=== PATIENT | female | born 1935 | race Caucasian/White ===

== ENCOUNTER 2017-04-18 11:29 | Inpatient (IN) ==
[2017-04-18 16:39] LABS: ALLEN TEST YES; BE -8.8 mmoll (-3.0-3.0); BLOOD TYPE ARTERIAL; DRAW SITE R BRACHIAL; O2(CT) 15.6 mL/dL (15.0-23.0); PCO2(98.6) 34 mmHg (35-45); PO2(98.6) 88 mmHg (60-100); SAMPLE BLOOD; SAO2 96.5 % (95.0-100.0); THB 11.4 g/dL (11.5-17.4)
[2017-04-18] MEDS: ZOFRAN IV PRN ×2 (16:39→22:50)
[2017-04-18] MEDS: NORCO-7.5 PO PRN ×2 (16:39→22:49)
[2017-04-18] MEDS: DUONEB (A & A) INH SCH ×3 (16:40→23:35)
[2017-04-18] MEDS: SOLU-MEDROL IV SCH ×2 (16:40→22:50)
[2017-04-18 16:42] LABS: MODALITY ROOM AIR
--- NOTE | 2017-04-18 16:49 | EKG Report ---
Test Performed on : 04/18/2017 3:43:30 PM Test Reason : sob/copd Blood Pressure : / mmHG Vent. Rate : 070 BPM Atrial Rate : 070 BPM P-R Int : 156 ms QRS Dur : 080 ms QT Int : 380 ms P-R-T Axes : 057 012 051 degrees QTc Int : 410 ms Normal sinus rhythm. 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
[2017-04-18 17:04] LABS: MANUAL DIFF NEEDED? NO
[2017-04-18 17:07] LABS: BASO% 0.2 % (0.0-0.8); EOS# 0.21 X1000 (0.0-0.7); EOS% 1.6 % (0.0-10.0); HEMATOCRIT 36.3 % (37.0-47.0); HEMOGLOBIN 12.2 g/dL (12.0-16.0); IMM GRAN# 0.08 X1000 (0.0-0.04); IMM GRAN% 0.6 % (0.0-0.5); LYMPH# 2.05 X1000 (1.2-3.4); LYMPH% 15.7 % (20.5-51.1); MCH 28.6 PG (27-31); MCHC 33.6 g/dL (33-37); MONO% 7.7 % (1.7-9.3); MPV 10.5 FL (7.4-10.4); NEUT% 74.2 % (42.2-75.2); PLT 303 X1000 (130-400); RBC 4.27 XMIL (4.2-5.4)
--- NOTE | 2017-04-18 17:36 | HISTORY AND PHYSICAL ---
HISTORY OF PRESENT ILLNESS: Ms. Starks, who is an 81-year-old white female, was brought to the office with severe hypoxia. Her O2 saturation was 79. She had severe wheezing and some tightness in the chest. She also had pain in the left leg. She has a known case of COPD, maturity onset diabetes, severe osteoarthritis. She does use breathing treatments at home. She has been feeling bad and hence, she came to the office, from where she was admitted. PAST SURGICAL HISTORY: History of bladder repair in the past. She did have some prolapse of the uterus also. No other surgeries. SOCIAL HISTORY: She smoked only 2 cigarettes in her life. She does not drink. ALLERGIES: She is allergic to oxycodone. REVIEW OF SYSTEMS: She has generalized weakness, severe tightness in the chest, cough with expectoration, and low-grade fever. : Unremarkable. Endocrine: Unremarkable. Breasts: Unremarkable. GI: Unremarkable. PHYSICAL EXAMINATION: VITAL SIGNS: Reveal temperature 98.0 degrees, pulse 77 per minute, respiratory rate 20 per minute, blood pressure 122/58. HEENT: Head normocephalic. Pupils PERRLA. Fundus examination not done. Neck is supple. JVP normal. ENT examination unremarkable. There is no evidence of lymphadenopathy, thyroid enlargement, pedal edema, calf tenderness, anemia, cyanosis or clubbing. Pedal pulses well felt. BREASTS: Exam normal. CHEST: Normal inspection. LUNGS: Reveal bilateral severe expiratory wheezing with some basal rales. HEART: PMI in the normal position. Heart sounds normal. No murmur, gallop, or rub noted. ABDOMEN: Nondistended. Hernial orifices normal. No guarding, rigidity, free fluid, masses, or organomegaly. Bowel sounds normal. RECTAL: Deferred. CRIME LAB ANALYST: Higher functions normal. Cranial nerves normal. Motor and sensory system examination unremarkable. Deep tendon reflexes normal. Plantars downgoing. Skull and spine examination reveal painful movements of the lumbosacral spine. There are no cerebellar signs or signs of meningeal irritation. LOCOMOTOR EXAM: Unremarkable. SKIN EXAM: Unremarkable except for the presence of some calf tenderness and severely painful movements of the left knee and bilateral varicose veins. IMPRESSIONS: 1. Chronic obstructive pulmonary disease. 2. Patient may have pneumonia. 3. She has acute bronchitis. PLAN: Will continue with the current management on her with IV antibiotics and IV steroids. cc: Nicholas Sorensen MD
[2017-04-18 17:51] LABS: ALBUMIN 3.8 g/dL (3.5-5.0); CALCIUM 8.9 mg/dL (8.8-10.2); POTASSIUM 5.5 mmol/L (3.5-5.1); TOTAL BILIRUBIN 0.17 mg/dL (0.20-1.00); TOTAL PROTEIN 7.5 g/dL (6.3-8.3)
--- NOTE | 2017-04-18 18:55 | Diag Imaging Result Doc PS360 ---
CHEST-2 VIEWS - 04/18/2017 INDICATION: sob/copd TECHNIQUE: COMPARISON: 12/29/2016 FINDINGS: Stable calcified granuloma at the right base. The right upper lobe nodule is difficult to see as it is concealed by ribs and bones. No focal infiltrates, pneumothorax, or pleural effusion. Heart size is normal. IMPRESSION: No definite change from prior. Electronically signed by Nic Khan 04/18/2017 6:52 PM
[2017-04-18] MEDS: ROCEPHIN 1 GM/NS 1 GM/50 ML IVPB IV SCH (20:56)
[2017-04-18] MEDS: GLUCOPHAGE PO SCH (20:56)
[2017-04-19] MEDS: SOLU-MEDROL IV SCH ×3 (03:20→17:23)
[2017-04-19] MEDS: DUONEB (A & A) INH SCH ×2 (03:21→07:43)
[2017-04-19] MEDS: PRILOSEC PO SCH (08:01)
[2017-04-19] MEDS: NORCO-7.5 PO PRN ×3 (08:01→21:08)
--- NOTE | 2017-04-19 09:31 | PROGRESS NOTE ---
DATE: 04/19/2017 Ms. Starks is still very nervous. Her lungs sound somewhat better. Her abdomen is soft, nontender. We will continue with the current management on her. She is getting IV steroids. There is no pneumonia on the chest x-ray. -2 cc: Nicholas Sorensen MD
[2017-04-19] MEDS: GLUCOPHAGE PO SCH ×2 (09:54→17:23)
[2017-04-19] MEDS: MOBIC PO SCH (09:54)
[2017-04-19] MEDS: ZOFRAN IV PRN ×3 (10:00→21:07)
--- NOTE | 2017-04-19 12:13 | Diag Imaging Result Doc PS360 ---
EXAM: MRI LOWER EXT JT W/O CON-LEFT INDICATION: pain TECHNIQUE: COMPARISON: None. FINDINGS: There is increased signal associated with the medial and lateral menisci suggesting mucoid degeneration. There is no definite extension of the signal abnormality to the joint surface to indicate a discrete tear. The anterior and posterior cruciate ligaments are grossly intact. The patellar tendon and the patellar retinacula are intact. The medial collateral ligament and lateral collateral ligament complex are intact. There is chondromalacia that appears to be most significant at the lateral compartment and patellofemoral compartment. There is a degenerative subcortical cyst involving the tibial plateau adjacent to the medial tibial spine. There is a small joint effusion with fluid tracking into the suprapatellar bursa. There is a small Longo's cyst. 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 2.Small joint effusion with a small Longo's cyst. 3.Meniscal mucoid degeneration but no well-defined tear can be identified on this study. Electronically signed by Alexis Rudolph 04/19/2017 12:11 PM
[2017-04-19] MEDS: ATIVAN PO SCH ×2 (14:17→17:23)
[2017-04-19] MEDS: ROCEPHIN 1 GM/NS 1 GM/50 ML IVPB IV SCH (17:23)
[2017-04-19] MEDS: DUONEB (A & A) INH PRN (21:25)
[2017-04-20] MEDS: SOLU-MEDROL IV SCH ×3 (00:19→15:44)
[2017-04-20] MEDS: PRILOSEC PO SCH (06:33)
[2017-04-20] MEDS: ZOFRAN IV PRN ×3 (06:33→22:11)
[2017-04-20] MEDS: NORCO-7.5 PO PRN ×3 (06:33→22:11)
[2017-04-20] MEDS: ATIVAN PO SCH ×3 (08:03→16:24)
[2017-04-20] MEDS: MOBIC PO SCH (08:03)
[2017-04-20] MEDS: GLUCOPHAGE PO SCH ×2 (08:03→16:24)
--- NOTE | 2017-04-20 11:10 | PROGRESS NOTE ---
DATE: 04/20/2017 Ms. Starks is feeling better. She has severe pain in the left knee. Venous flow study was negative for DVT. MRI done yesterday had revealed the presence of some fluid in the knee as well as Longo's cyst. She also has arthritis with some chondromalacia. Overall condition is otherwise unchanged. Nervousness is better. Breathing is better. Blood sugar is high partly because of the steroid therapy. We are going to cut down from 80 to 40 mg q.8 hours and start the physical therapy. She also has some swallowing problems. We will get some speech therapy evaluation. -7 cc: Nicholas Sorensen MD
--- NOTE | 2017-04-20 15:15 | Extremity Venous Study ---
PROCEDURE NAME: Venous U/S Left Leg - 04/18/2017 LEFT LOWER EXTREMITY VENOUS ULTRASOUND: INDICATION: Knee pain. REQUESTING PHYSICIAN: Dr. Sorensen. BILLET WORKER: Jan. FINDINGS: The deep superficial veins of the left lower extremity were visualized along their course. All veins compressible with forward flow and no evidence intraluminal thrombus. Of note, there did appear to be a Longo cyst noted in the left popliteal fossa with an associated knee effusion as well on that side. SUMMARY: No deep or superficial venous thrombosis in the left lower extremity, but there does appear to be a Longo cyst and the left knee effusion. These results are called to Dr. Sorensen. cc: MD Nicholas Anthony MD
[2017-04-20] MEDS: ROCEPHIN 1 GM/NS 1 GM/50 ML IVPB IV SCH (15:43)
[2017-04-20] MEDS: DUONEB (A & A) INH PRN ×2 (16:11→21:20)
[2017-04-21] MEDS: SOLU-MEDROL IV SCH ×3 (00:28→22:32)
[2017-04-21] MEDS: PRILOSEC PO SCH (06:27)
[2017-04-21] MEDS: ZOFRAN IV PRN ×2 (06:32→22:32)
[2017-04-21] MEDS: NORCO-7.5 PO PRN ×3 (06:32→22:32)
[2017-04-21] MEDS: ATIVAN PO SCH ×3 (08:44→22:32)
[2017-04-21] MEDS: MOBIC PO SCH (08:44)
[2017-04-21] MEDS: GLUCOPHAGE PO SCH ×2 (08:44→16:28)
[2017-04-21] MEDS: DUONEB (A & A) INH PRN ×3 (09:18→19:43)
--- NOTE | 2017-04-21 11:43 | PROGRESS NOTE ---
DATE: 04/21/2017 SUBJECTIVE: The patient says she is feeling better with her breathing. She still hurts in her left arm on occasion. She has a Longo cyst in her left knee with some chondromalacia. I woke her up and she says she felt lousy but yet she felt better than what she had been she said. OBJECTIVE: Blood pressure is 106/56, respirations 20, pulse 63, temperature 97.8 degrees Fahrenheit. O2 saturations 97% on 2 L per nasal cannula. HEENT: Normocephalic. EOMs intact. PERRLA. Throat clear. Lungs have scattered rales but no wheezes. Heart has regular rate and rhythm without murmurs, gallops, or friction rubs. Abdomen is soft. Active bowel sounds. No organomegaly or tenderness. Neurologic intact grossly. Does not seem to be real tender over her left arm at this time but may have a little bit of a biceps tendinitis as she is tender in the bicipital groove. She is already on steroids which would be the treatment for that, and the steroids should help the Longo cyst on the left knee. Since she is doing better, I will decrease her Solu-Medrol. cc: MD Nicholas Stewart Jr, MD
[2017-04-21] MEDS: ROCEPHIN 1 GM/NS 1 GM/50 ML IVPB IV SCH (15:11)
[2017-04-22] MEDS: NORCO-7.5 PO PRN ×3 (04:53→16:59)
[2017-04-22] MEDS: ZOFRAN IV PRN ×3 (04:53→16:59)
[2017-04-22] MEDS: PRILOSEC PO SCH (06:24)
[2017-04-22] MEDS: GLUCOPHAGE PO SCH ×2 (08:21→16:55)
[2017-04-22] MEDS: MOBIC PO SCH (08:21)
[2017-04-22] MEDS: ATIVAN PO SCH ×3 (08:21→21:26)
[2017-04-22] MEDS: SOLU-MEDROL IV SCH ×2 (08:21→21:26)
[2017-04-22] MEDS: DUONEB (A & A) INH PRN ×3 (09:36→21:05)
--- NOTE | 2017-04-22 12:01 | PROGRESS NOTE ---
DATE: 04/22/2017 SUBJECTIVE: The patient complains that her knee still hurts. She has a Longo cyst there. Her shoulder is better and her breathing is better. I did decrease her Solu-Medrol slightly yesterday. OBJECTIVE: Vital Signs: Temperature of 97.5 degrees Fahrenheit. Pulse 71, respirations 18 and unlabored, blood pressure 114/51. Oxygen saturation is 98% on 2 L of oxygen. HEENT: She is normocephalic. Intact PERRLA. Throat clear. Lungs: Sound fairly clear to auscultation at this time. Heart: Regular rate rhythm without murmurs, gallops, or friction rubs. Abdomen: Soft. Active bowel sounds. No organomegaly or tenderness. Neurological: Intact grossly. Patient tells me she has emphysema but she never smoked but 2 cigarettes but was around her father and her brothers who smoked and that she got this through secondhand smoking. Her left shoulder seems to be better. ASSESSMENT: 1. Chronic obstructive pulmonary disease exacerbation--improving. 2. Longo cyst left popliteal fossa. 3. Left shoulder/biceps tendon pain. PLAN: Continue care. Seems to be improving. cc: MD Nicholas Stewart Jr, MD
[2017-04-22] MEDS: ROCEPHIN 1 GM/NS 1 GM/50 ML IVPB IV SCH (15:04)
[2017-04-23] MEDS: NORCO-7.5 PO PRN ×4 (00:53→23:16)
[2017-04-23] MEDS: ZOFRAN IV PRN ×4 (00:53→23:16)
[2017-04-23] MEDS: PRILOSEC PO SCH (06:31)
[2017-04-23] MEDS: GLUCOPHAGE PO SCH ×2 (08:57→17:36)
[2017-04-23] MEDS: MOBIC PO SCH (08:57)
[2017-04-23] MEDS: ATIVAN PO SCH ×4 (08:57→22:57)
[2017-04-23] MEDS: SOLU-MEDROL IV SCH ×2 (08:58→21:51)
--- NOTE | 2017-04-23 09:07 | PROGRESS NOTE ---
DATE: 04/23/2017 Ms. Starks's blood sugar was 269. She has been on reducing doses of Solu-Medrol 40 mg IV q.12 hours. Her knee is still giving her a lot of problems. She is still short of breath. She was supposed to have a speech therapy consult. It appears like she has not been seen. Her MRI shows fluid and Longo's cyst. She is still having a lot of left knee pain. We will ask Dr. Cobian to see her for the left knee pain. IMPRESSION: 1. Severe arthritis with fluid in the left knee with a Longo's cyst. 2. She also has mature onset diabetes. 3. Chronic obstructive pulmonary disease with acute bronchitis. 4. General condition is otherwise unchanged. -6 cc: Nicholas Sorensen MD
--- NOTE | 2017-04-23 09:27 | Diag Imaging Result Doc PS360 ---
EXAM: SHOULDER-LEFT HISTORY: pain,H/o Fall TECHNIQUE: Left shoulder two views COMMENT: There is no evidence of acute fracture or dislocation. The external rotation view is suboptimal. There are degenerative changes in the acromioclavicular joint which appear to have progressed since 02/12/2015. IMPRESSION: Suboptimal study. Degenerative disease in the acromioclavicular joint. Electronically signed by Luis Mckeon 04/23/2017 9:24 AM
[2017-04-23] MEDS: DUONEB (A & A) INH PRN ×3 (09:55→19:50)
[2017-04-23] MEDS: ROCEPHIN 1 GM/NS 1 GM/50 ML IVPB IV SCH (17:36)
[2017-04-24] MEDS: ZOFRAN IV PRN ×3 (06:18→20:15)
[2017-04-24] MEDS: NORCO-7.5 PO PRN ×3 (06:18→20:16)
[2017-04-24] MEDS: PRILOSEC PO SCH (06:19)
[2017-04-24] MEDS ORDERED: MEDROL DOSEPAK PO SCH (07:30)
[2017-04-24] MEDS: GLUCOPHAGE PO SCH ×2 (09:29→16:19)
[2017-04-24] MEDS: MOBIC PO SCH (09:29)
[2017-04-24] MEDS: KLONOPIN PO SCH ×2 (09:45→20:16)
[2017-04-24] MEDS: MEDROL PO SCH ×4 (09:45→20:16)
--- NOTE | 2017-04-24 11:31 | PROGRESS NOTE ---
DATE: 04/24/2017 SUBJECTIVE: Ms. Starks is slightly better. She was seen by Dr. Murguia, who suggested some anti- inflammatory medication and later on intra-articular injections. Ms. Starks was getting confused on Ativan, and the family suggested we change it to Klonopin which we had to do with the fact that there was arthritis in the knee with Longo cyst on the left side and synovitis, along with arthritis with joint effusion on the left knee. She also has maturity onset diabetes. We will try to ion exchange operator. -0 cc: Nicholas Sorensen MD
--- NOTE | 2017-04-24 13:30 | CONSULTATION ---
DATE OF CONSULTATION: 04/24/2017 CHIEF COMPLAINT: Left knee pain. HISTORY OF PRESENT ILLNESS: 81-year-old female was admitted the hospital for multiple medical issues as well as extremity pain. She has a history of shoulder pain as well as left knee pain. She recently underwent an MRI of the left knee which shows some degenerative changes and a Longo's cyst. She reports intermittent swelling and effusions about the left knee which have caused her difficulty. I was consulted for evaluation of this. PAST MEDICAL HISTORY: Significant for COPD, adult onset diabetes and arthritis. SURGICAL HISTORY: Of bladder repair in the past. SOCIAL HISTORY: Does smoke cigarettes. Does not drink. ALLERGIC: Oxycodone. MEDICATIONS: Are up-to-date and accurate per admission records. PHYSICAL EXAMINATION: Examination of the left knee reveals no effusion. There is mild patellofemoral crepitus. There is no instability. There is no redness or warmth. Examination of the shoulder reveals some loss of active and passive motion demonstrating adhesive capsulitis and bursitis of the shoulder. X-RAYS: Reviewed of the knee including MRI which shows no fracture or dislocation. X-rays of the shoulder are reported as DJD over the AC joint. ASSESSMENT: 1. Chondromalacia with DJD of the knee and Longo's cyst. 2. Bursitis and DJD AC joint of the shoulder with mild adhesive capsulitis. PLAN: Patient can be mobilized. Physical therapy for both shoulder and knee. Will place her on a Medrol Dosepak for acute inflammation throughout her body. I will follow up with her in a week for further evaluation. If she fails to improve in a specific area, we will consider cortisone shot at that area in the office setting. Thanks again for asking us to evaluate her. cc: MD Nicholas Onofre MD
[2017-04-24] MEDS: ROCEPHIN 1 GM/NS 1 GM/50 ML IVPB IV SCH (16:20)
[2017-04-25] MEDS: PRILOSEC PO SCH (06:25)
[2017-04-25] MEDS: ZOFRAN IV PRN (08:46)
[2017-04-25 08:50] VITALS: BP 150/70
[2017-04-25] MEDS: MEDROL PO SCH (08:50)
[2017-04-25] MEDS: GLUCOPHAGE PO SCH (08:50)
[2017-04-25] MEDS: NORCO-7.5 PO PRN (08:50)
[2017-04-25] MEDS: KLONOPIN PO SCH (08:51)
[2017-04-25] MEDS: MOBIC PO SCH (08:51)
--- NOTE | 2017-04-25 09:51 | PROGRESS NOTE ---
DATE: 04/25/2017 Ms. Starks is doing better. Her lungs are clear. Heart sounds are normal. Her knee still has a lot of pain. We will discharge her today with prednisone as well as antibiotics and Zofran ODT today. IMPRESSIONS: 1. Acute bronchitis. 2. Diabetes. 3. Severe pain in the left knee as well as the left shoulder with arthritis and bursitis. -3 cc: Nicholas Sorensen MD
--- NOTE | 2017-04-26 05:52 | DISCHARGE SUMMARY ---
ADMISSION DATE: 04/18/2017 DISCHARGE DATE: 04/25/2017 HISTORY: Ms. Starks, who is an 81-year-old white female, was admitted with shortness of breath, severe pain in the left knee. She had acute exacerbation of COPD. She had persistent cough and fever with the suspicion for pneumonia. Chest x-ray revealed no definite acute change, like pneumonia. Extremity venous studies were negative. No deep or superficial venous thrombosis was noted. Appeared to be a Longo's cyst and left knee effusion. Her extremity MRI revealed again presence of the Longo cyst with small joint effusion, degenerative chondromalacia changes, meniscal mucoid degeneration was also noted. LAB DATA: Also revealed leukocytosis. White count was 13.07. ABGs revealed pH 7.3, pCO2 34, PO2 was 88 and she had mild renal failure with mild hyperkalemia; potassium was 5.5. Other values were unremarkable. COURSE IN THE HOSPITAL: She was treated with IV steroids as well as IV antibiotics and respiratory therapy. Left knee pain was severe. Orthopedics consult was made. Dr. Murguia saw her and wanted to treat her conservatively with prednisone tablets for the time being and later on, intra-articular steroid knee injections. I will discharge her. FINAL DIAGNOSES: 1. Acute exacerbation of chronic obstructive pulmonary disease. 2. Uncontrolled diabetes. 3. Severe anxiety state. 4. Arthritis in the left knee as well as the left shoulder with some bursitis. FOLLOWUP: We will follow her in about 7 days. cc: Nicholas Sorensen MD
--- NOTE | 2017-05-01 10:24 | DISCHARGE SUMMARY ---
ADMISSION DATE: 04/18/2017 DISCHARGE DATE: 04/25/2017 DISCHARGE SUMMARY ADDENDUM: The patient had a known case of COPD and was admitted with acute bronchitis. However, her ABGs revealed a pH of 7.3, pCO2 was only 34. Her BUN and creatinine were elevated. Potassium was 5.5. I feel like she had mild metabolic acidosis at that time. She was breathing fast, she was also very nervous, but she had mild metabolic acidosis from renal failure. cc: Nicholas Sorensen MD
== END 2017-04-25 11:47 | disposition home health service (06) ==
LOC: DIRADM 11:29 → 3N 12:07
PROVIDERS: ADMIT Internal Medicine; ATTEND Internal Medicine

== ENCOUNTER 2017-05-16 09:58 | Inpatient (IN) ==
[2017-05-16] MEDS ORDERED: NS 1,000 ML IV ONE ×2 (10:14→13:43)
[2017-05-16] MEDS ORDERED: IMODIUM PO ONE (10:15)
[2017-05-16] MEDS ORDERED: PHENERGAN IV ONE (10:15)
[2017-05-16] MEDS ORDERED: SODIUM CHLORIDE 0.9% INJ ONE (10:15)
[2017-05-16 10:51] LABS: MANUAL DIFF NEEDED? NO
[2017-05-16 10:57] LABS: BASO% 0.2 % (0.0-0.8); EOS# 0.04 X1000 (0.0-0.7); EOS% 0.4 % (0.0-10.0); HEMATOCRIT 37.4 % (37.0-47.0); HEMOGLOBIN 12.3 g/dL (12.0-16.0); IMM GRAN# 0.15 X1000 (0.0-0.04); IMM GRAN% 1.7 % (0.0-0.5); LYMPH# 1.25 X1000 (1.2-3.4); MCH 27.8 PG (27-31); MCHC 32.9 g/dL (33-37); MCV 84.4 FL (81-99); MONO# 0.72 X1000 (0.11-0.59); MONO% 8.1 % (1.7-9.3); NEUT% 75.6 % (42.2-75.2); PLT 441 X1000 (130-400); RBC 4.43 XMIL (4.2-5.4)
[2017-05-16 11:30] LABS: INR 1.02; PROTIME 10.7 Seconds (9.2-11.7)
[2017-05-16 11:32] LABS: URINE CULTURE NEEDED? NO; URINE SOURCE CATH
[2017-05-16 11:36] LABS: BILIRUBIN URINE NEGATIVE (NEGATIVE); BLOOD URINE NEGATIVE (NEGATIVE); COLOR YELLOW; GLUCOSE URINE NEGATIVE (NEGATIVE); LEUKOCYTES URINE NEGATIVE (NEGATIVE); NITRITE URINE NEGATIVE (NEGATIVE); PH URINE 5.5; PROTEIN URINE 50 mg/dL (NEGATIVE); TURBIDITY URINE CLEAR (CLEAR); UROBILINOGEN URINE NORMAL (NORMAL)
[2017-05-16 11:37] LABS: ALBUMIN 3.6 g/dL (3.5-5.0); POTASSIUM 5.3 mmol/L (3.5-5.1); TOTAL BILIRUBIN 0.16 mg/dL (0.20-1.00); TOTAL PROTEIN 7.6 g/dL (6.3-8.3)
[2017-05-16 11:38] LABS: URINE MICRO REVIEW NEEDED? YES
[2017-05-16] MEDS ORDERED: NS 2,000 ML IV ONE (11:52)
--- NOTE | 2017-05-16 12:02 | PROVIDER DOCUMENTATION ---
This chart was entered by India Sullivan Scribe, acting as scribe for Jan Almeida MD. HPI-General Adult - General Stated Complaint: N/V/D Time Seen by Provider: 05/16/17 10:00 Source: patient Allergies/Adverse Reactions: Patient Allergies Allergy/AdvReac Type Severity Reaction Status Date / Time oxycodone AdvReac Severe Unknown Verified 05/16/17 11:04 oxycodone HCl * AdvReac SWELLING Verified 05/16/17 11:04 [From Percocet] Home Medications: Home Medication List Medication Instructions Recorded Confirmed Last Taken Type Hydrocodone/APAP 10 mg/325 mg 1 each PO TID PRN PRN #0 tablet 12/29/16 05/16/17 05/15/17 23:00 Rx [[facility]-10] Albuterol 2.5MG/Ipratrop 0.5MG 3 ml INH Q6H PRN PRN #0 neb 04/25/17 05/16/17 Unknown Rx [Duoneb (A & A)] Meloxicam [Mobic] 15 mg PO DAILY tablet 04/25/17 05/16/17 05/15/17 08:30 Rx Metformin [Glucophage] 500 mg PO BID CC tablet 04/25/17 05/16/17 05/15/17 08: 30 Rx Omeprazole [Prilosec] 20 mg PO ACB capsule 04/25/17 05/16/17 05/15/17 08:30 Rx Ondansetron Odt [Zofran 4 mg Odt] 4 mg PO TID AC #30 tablet 04/25/17 05/16/17 23:00 Rx Clonazepam [Klonopin] 0.5 mg PO HS 05/16/17 05/16/17 05/15/17 20:30 History - History of Present Illness -Gen Adult Nature of Presenting Problems: Pt is 82 y/o F presents to the ED via EMS with V and D. Pt states symptoms started last night at 1730. Pt states 5 episodes of V and 12 episodes of D. Pt denies abdominal pain. Pt denies F Location of Pain/Injury: reports: none Pain Radiation: reports: no radiation Quality of Pain: reports: none Severity: reports: mild Onset/Duration: reports: last night (1730) Timing: reports: still present Context/Activities at Onset: reports: light activity Modifying Factors: improves with: nothing Associated Symptoms: reports: diarrhea, vomiting. denies: anxiety, arm pain, back/neck pain, chest pain, constipation, cough, diaphoresis, dizziness, EENT symptoms, fatigue, fever/chills, genitourinary problems, headaches, heartburn, joint pain, loss of appetite, malaise, muscle aches, sinus congestion/drainage, nausea, rash, seizure, shortness of breath, sensory/motor loss, pain with inspiration, swelling/mass in abdomen, syncope, weakness, trouble walking Similar Symptoms Previously?: Yes Recently seen or treated by another doctor?: No Review of Systems - Adult - REVIEW OF SYSTEMS - ADULT Constitutional: denies: chills, fever Eyes: denies: blurred vision, double vision, redness Ears, Nose, Mouth & Throat: denies: ear pain, sinus problem, nose pain, throat pain Cardiovascular: denies: chest pain, heart murmur, irregular heart rate Respiratory: denies: cough, shortness of breath, wheezing Gastrointestinal: reports: diarrhea (12), vomiting (5). denies: abdominal pain , nausea Genitourinary: denies: dysuria, flank pain, hematuria, urinary retention Musculoskeletal: denies: back pain, joint pain, muscle aches, muscle weakness, neck pain Integumentary: denies: hives, itching, rash Neurological: denies: dizziness/vertigo, headache/migraines, numbness, seizure, syncope Psychiatric: reports: no symptoms reported Endocrine: reports: no symptoms reported Hematologic/Lymphatic: reports: no symptoms reported Allergic/Immunologic: reports: no symptoms reported All Other Systems: Reviewed and Negative Past History - Adult - PAST MEDICAL HISTORY-ADULT Review of Records: reports: Nursing Assessment Review, Medications Reviewed, Social history reviewed & non-contributory. Major Childhood Illnesses: reports: denies history Cardiovascular: reports: HTN, other (slightly enlarged heart) Respiratory: reports: COPD Gastrointestinal: reports: GERD (Hiatal hernia). denies: ulcer Obstetrical/Gynecological: reports: denies history Genitourinary: reports: denies history Musculoskeletal: reports: other (osteomylitis) Neurological: reports: denies history Endocrine/Immune: reports: Diabetes Other Conditions: reports: other cancer (skin cancer) - PRIOR SURGERIES/PROCEDURES Surgical/Procedure History: reports: tonsillectomy, other (bladder sling) - IMMUNIZATION STATUS Childhood Immunizations: See Nurse Assessment Flu Vaccine: See Nurse Assessment - FAMILY HISTORY Family History: reviewed, not pertinent - SOCIAL HISTORY Smoking: denies Substance Use: denies Living Situation: family Physical Exam-General - PHYSICAL EXAM-ADULT Initial Vital Signs Reviewed: Yes - CONSTITUTIONAL General Appearance: appears well, alert, no apparent distress. negative: lethargic, slow to respond - EYES Eyes: PERRL/EOMI, pink conjunctivae. negative: sclera injected, scleral icterus - HEAD, EARS, NOSE, MOUTH & THROAT HENMT: normocephalic/atraumatic, moist mucous membranes, normal ENT inspection. negative: hearing deficit, pharyngeal erythema, tonsillar exudate - NECK Neck: non-tender, normal inspection. negative: carotid bruit, trachial deviation - RESPIRATORY Respiratory: chest non-tender, lungs clear, normal breath sounds. negative: crackles, rales, stridor, wheezing, increased rate - CARDIOVASCULAR Cardiovascular: normal peripheral pulses, regular rate, rhythm. negative: bradycardia, tachycardia, diastolic murmur - GASTROINTESTINAL (ABDOMEN) Abdominal Exam: normal bowel sounds, non tender, soft. negative: distended, guarding, rebound - LYMPHATIC Lymphatic: no adenopathy. negative: enlargement, streaking - MUSCULOSKELETAL Back Exam: normal inspection. negative: muscle spasm, swelling, vertebral tenderness Extremity: normal range of motion, normal inspection. negative: deformity, erythema, swelling - SKIN Integumentary: normal color, normal turgor, warm/dry. negative: abrasion(s), blanching, decubitus, ecchymosis, laceration(s), swelling, tenderness - NEUROLOGIC Neurologic: grossly normal. negative: facial droop, sensory deficit - PSYCHIATRIC Psych/Mental Status: normal mood/affect, oriented x 3. negative: disheveled, paranoid Progress - PLAN OF CARE/RESULTS Progress/Plan/Lab Results: Orders Category Date Time Status PROTIME WITH INR [COAG] Stat Lab 05/16/17 10:01 Uncollected Result Diagrams: 05/16/17 10:43 05/16/17 10:43 - REASSESSMENT Reassessment #1 Time Reassessed: 12:01 Status: improving (family feels that her daughter may be giving her poison so we are doing a heavy metal screen) - CONSULTS/PCP/HOSPITALIST Notification #1 *Consult/PCP/Hospitalist*: Dr. Sorensen Time Discussed: 13:41 Reason/Comments: Dr. Almeida consulted with Dr. Sorensen about Pt. Consult Disposition: Admit (Dr Sorensen informed of the previous hx of arsenic poisoning by her other daughter. The police are doing testing of the gatoraide that may have been contaminated) Departure - Departure Date of Disposition Decision: 05/16/17 Time of Disposition Decision: 13:42 DIAGNOSIS: Nausea & vomiting, Diarrhea Disposition: HOME 01 Certified Medical Emergency: Emergent Condition: Stable Additional Freetext Instructions: ED Follow Up Instructions: You have been treated by a care provider in the Emergency Department. These instructions are being provided to you so you can have an understanding of how to care for yourself upon discharge. Upon discharge from the Emergency Department, you are responsible for making arrangements for follow-up care by a physician of your choice. Take all prescribed medications as directed. Return to the Emergency Department immediately for any new or worsening symptoms. You may call the Physician Referral phone number at [phone] to obtain a list of Physicians who are taking new patients. Referrals and Follow-Ups: Nicholas Sorensen MD [Primary Care Provider] - - Critical Care Note This patient required my direct & personal management of CC.: No This chart was documented by the indicated scribe, (India Sullivan Scribe) and accurately reflects the services I performed and decisions made by me, Jan Almeida MD, as attested by the provider's signature.
[2017-05-16 12:05] LABS: UR EPITHELIAL CELLS >10 /HPF (<10); URINE BACTERIA NEGATIVE /HPF; URINE RBC <10 /HPF (<10); URINE WBC <10 /HPF (<10)
[2017-05-16 12:06] LABS: URINE CASTS NONE SEEN
[2017-05-16 14:27] LABS: CALCIUM 7.4 mg/dL (8.8-10.2)
[2017-05-16] MEDS: POTASSIUM CHLORIDE 10 MEQ in 1/2 NS 1,000 ML IV SCH (17:32)
--- NOTE | 2017-05-16 17:41 | HISTORY AND PHYSICAL ---
HISTORY OF PRESENT ILLNESS: Ms. Starks is an 82-year-old white female, known case of COPD, hypertension, anxiety state, maturity onset diabetes who came in because of sudden onset of vomiting and diarrhea. She started vomiting last night around 6 p.m. yesterday after she drank a bottle of Gatorade. She has had diarrhea. The diarrhea and vomiting were associated with abdominal pain especially in the right upper quadrant and this was severe. She came to the emergency room where several bottles of IV fluids were given and then she got stabilized. Her BUN and creatinine were elevated. Recently, she was hospitalized for an acute bronchitis. She has COPD. The only surgery she has had done was tubal ligation. Recently she has severe arthritis in the left knee and she was seen by Dr. Murguia at that time. REVIEW OF SYSTEMS: Other than abdominal pain, diarrhea, vomiting was unremarkable. MEDICATIONS: Inhaler. [place]. Metformin. PHYSICAL EXAMINATION: GENERAL: The patient is alert. VITAL SIGNS: Reveal temperature normal, pulse 90 per minute, respiratory rate 17 per minute, blood pressure 108/54. HEENT: Head normocephalic. Pupils PERRLA. Fundus examination normal. Neck supple. JVP normal. ENT examination unremarkable. There is no evidence of lymphadenopathy, thyroid enlargement, pedal edema, calf tenderness, anemia, cyanosis or clubbing. Pedal pulses are well felt. BREASTS: Normal. Chest, normal inspection. LUNGS: Clear on auscultation. PMI in the normal position. HEART: Sounds normal. No murmur, gallop or rub noted. ABDOMEN: Nondistended. There is some tenderness in the right upper quadrant. No guarding, rigidity, free fluid, masses or organomegaly. Bowel sounds present. RECTAL: Deferred. PROCESS ENGINEERING TECHNICIAN/HIGHER FUNCTIONS: Patient is anxious. Cranial nerves normal. Motor and sensory system examination reveals some essential tremors with . Deep tendon reflexes normal, plantars downgoing. Skull and spine examination normal for age. No cerebellar signs or signs of meningeal irritation. LOCOMOTOR: Unremarkable. SKIN: Unremarkable except for the presence of significant dehydration. IMPRESSION: Dehydration. Severe diarrhea, vomiting. BUN and creatinine are elevated. We will continue the IV fluids. Repeat the lab values in the morning. We also did a stool culture. cc: Nicholas Sorensen MD
[2017-05-16] MEDS: ZOFRAN IV PRN (18:03)
[2017-05-16] MEDS: DILAUDID IV PRN ×2 (18:03→22:46)
[2017-05-16] MEDS: HUMULIN R SUBQ SCH (21:00)
[2017-05-17] MEDS: POTASSIUM CHLORIDE 10 MEQ in 1/2 NS 1,000 ML IV SCH ×3 (02:07→21:22)
[2017-05-17] MEDS: DILAUDID IV PRN ×5 (02:25→21:59)
[2017-05-17] MEDS: HUMULIN R SUBQ SCH ×3 (06:33→17:33)
[2017-05-17 06:52] LABS: BASO% 0.5 % (0.0-0.8); EOS# 0.09 X1000 (0.0-0.7); EOS% 1.4 % (0.0-10.0); HEMATOCRIT 30.9 % (37.0-47.0); HEMOGLOBIN 9.9 g/dL (12.0-16.0); IMM GRAN# 0.25 X1000 (0.0-0.04); IMM GRAN% 3.8 % (0.0-0.5); LYMPH# 1.23 X1000 (1.2-3.4); LYMPH% 18.8 % (20.5-51.1); MANUAL DIFF NEEDED? NO; MCH 27.5 PG (27-31); MCV 85.8 FL (81-99); MONO# 0.61 X1000 (0.11-0.59); MONO% 9.3 % (1.7-9.3); MPV 9.9 FL (7.4-10.4); NEUT% 66.2 % (42.2-75.2); PLT 371 X1000 (130-400)
[2017-05-17 07:02] LABS: CALCIUM 7.8 mg/dL (8.8-10.2)
--- NOTE | 2017-05-17 10:06 | Diag Imaging Result Doc PS360 ---
EXAM: WRIST COMPLETE RIGHT HISTORY: severe pain TECHNIQUE: Three views COMPARISON: None. FINDINGS: No fracture. No dislocation. There is narrowing at the joint between the scaphoid, trapezium, and trapezoid. IMPRESSION: Arthritic changes in the wrist. Electronically signed by Miles Hickman 05/17/2017 10:04 AM
[2017-05-17 12:41] LABS: BILIRUBIN URINE NEGATIVE (NEGATIVE); BLOOD URINE NEGATIVE (NEGATIVE); CLARITY CLEAR (CLEAR); COLOR YELLOW; GLUCOSE URINE NEGATIVE (NEGATIVE); LEUKOCYTES URINE NEGATIVE (NEGATIVE); NITRITE URINE NEGATIVE (NEGATIVE); PH URINE 5.5; PROTEIN URINE NEGATIVE (NEGATIVE); SP GRAVITY URINE 1.015; UROBILINOGEN URINE 0.2 EU/dL (0.2-1.0)
[2017-05-17 12:56] LABS: URINE SOURCE VOIDED
[2017-05-17] MEDS: ZOFRAN IV PRN (21:59)
[2017-05-18] MEDS: HUMULIN R SUBQ SCH ×5 (00:56→22:09)
[2017-05-18] MEDS: DILAUDID IV PRN ×5 (01:36→21:14)
[2017-05-18] MEDS: POTASSIUM CHLORIDE 10 MEQ in 1/2 NS 1,000 ML IV SCH ×4 (03:17→21:14)
--- NOTE | 2017-05-18 03:52 | PROGRESS NOTE ---
DATE: 05/17/2017 SUBJECTIVE: The patient is somewhat better. Diarrhea is better. BUN and creatinine are slightly better. However, she is having a lot of pain in her right wrist as well as other joints. I will check her out for gout, as well as rheumatoid arthritis, and x-ray the right wrist. Overall, condition is slowly improving. -4 cc: Nicholas Sorensen MD
[2017-05-18] MEDS: ZOFRAN IV PRN ×2 (04:31→21:14)
[2017-05-18 06:59] LABS: CALCIUM 8.8 mg/dL (8.8-10.2); POTASSIUM 4.9 mmol/L (3.5-5.1)
--- NOTE | 2017-05-18 13:20 | PROGRESS NOTE ---
DATE: 05/18/2017 Ms. Starks is doing fairly well except that she is having a lot of abdominal pain. She is tolerating the food well. We have stepped her up to soft diet and start her on some IV steroids. She has lot of pain in the multiple joints including the left knee as well as right today and both hip joints. We will add steroids. We will continue the IV fluids. The BUN and creatinine are getting better. She has dehydration, gastroenteritis, severe osteoarthritis. -7 cc: Nicholas Sorensen MD
[2017-05-18] MEDS: SOLU-MEDROL IV SCH (14:41)
[2017-05-18] MEDS: ZOFRAN ODT PO SCH (17:21)
[2017-05-18] MEDS: GLUCOPHAGE PO SCH (17:23)
[2017-05-18] MEDS: KLONOPIN PO SCH (22:13)
[2017-05-19] MEDS: DILAUDID IV PRN ×5 (00:07→21:16)
[2017-05-19] MEDS: SOLU-MEDROL IV SCH ×2 (00:07→11:46)
[2017-05-19] MEDS: POTASSIUM CHLORIDE 10 MEQ in 1/2 NS 1,000 ML IV SCH ×3 (05:37→22:14)
[2017-05-19] MEDS: PRILOSEC PO SCH ×2 (05:38→08:00)
[2017-05-19] MEDS: ZOFRAN ODT PO SCH ×4 (05:38→17:29)
[2017-05-19] MEDS: HUMULIN R SUBQ SCH ×4 (06:05→22:16)
[2017-05-19] MEDS: MOBIC PO SCH (08:41)
[2017-05-19] MEDS: GLUCOPHAGE PO SCH ×2 (08:41→17:29)
[2017-05-19] MEDS: DUONEB (A & A) INH PRN (11:32)
--- NOTE | 2017-05-19 13:21 | PROGRESS NOTE ---
DATE: 05/19/2017 SUBJECTIVE: Patient still complains of arthritis pain. She has been a little bit more agitated which could be from her steroids but apparently according to the family she has been somewhat agitated and somewhat confused ever since she got the diarrhea and acute gastroenteritis. She has had no more diarrhea in the last few hours. She is feeling better. Her creatinine has dropped from 3 down to 1.3, that was drawn yesterday. She has not had a CBC for the last 2 days. Has not had a chemistry profile for 24 hours. I will go ahead and get those to evaluate. PHYSICAL EXAM: Vital Signs: Blood pressure 151/70, respirations 20, pulse 75, temperature 97.9 degrees Fahrenheit. She is starting to put out urine now. She put out 1500 mL. She is starting to eat a little bit of her diet. HEENT: She is normocephalic, intact PERRLA. Throat clear. Lungs: Clear to auscultation and percussion without rhonchi, rales, or wheezes. Heart: Regular rate and rhythm without murmurs, gallops, or friction rubs. Abdomen: Slightly tender diffusely but not very severe. Neurological: Patient is a little agitated but alert and oriented. ASSESSMENT: 1. Acute gastroenteritis. 2. Dehydration. 3. Altered mental status. 4. Osteoarthritis. PLAN: We will get lab work. Continue IV fluids. cc: MD Nicholas Stewart Jr, MD
[2017-05-19] MEDS: NORCO-10 PO PRN (18:02)
[2017-05-19] MEDS: KLONOPIN PO SCH (22:17)
[2017-05-20] MEDS: DILAUDID IV PRN ×4 (00:10→21:46)
[2017-05-20] MEDS: SOLU-MEDROL IV SCH ×2 (00:10→11:59)
[2017-05-20] MEDS: POTASSIUM CHLORIDE 10 MEQ in 1/2 NS 1,000 ML IV SCH ×2 (00:11→05:45)
[2017-05-20] MEDS: PRILOSEC PO SCH ×2 (04:50→06:37)
[2017-05-20] MEDS: ZOFRAN ODT PO SCH ×4 (04:50→17:26)
[2017-05-20] MEDS: HUMULIN R SUBQ SCH ×5 (05:45→20:50)
[2017-05-20 06:58] LABS: BASO% 0.3 % (0.0-0.8); EOS# 0.01 X1000 (0.0-0.7); EOS% 0.1 % (0.0-10.0); HEMATOCRIT 26.4 % (37.0-47.0); HEMOGLOBIN 8.8 g/dL (12.0-16.0); IMM GRAN# 0.65 X1000 (0.0-0.04); IMM GRAN% 5.8 % (0.0-0.5); LYMPH# 1.39 X1000 (1.2-3.4); LYMPH% 12.5 % (20.5-51.1); MANUAL DIFF NEEDED? YES; MCH 27.8 PG (27-31); MCHC 33.3 g/dL (33-37); MCV 83.5 FL (81-99); MONO# 1.15 X1000 (0.11-0.59); MONO% 10.3 % (1.7-9.3); MPV 9.5 FL (7.4-10.4); PLT 372 X1000 (130-400); RBC 3.16 XMIL (4.2-5.4)
[2017-05-20 07:43] LABS: CALCIUM 7.9 mg/dL (8.8-10.2); POTASSIUM 5.3 mmol/L (3.5-5.1)
[2017-05-20 07:52] LABS: BANDS 6 % (0-1); LYMPHS 8 % (21-51); MONO 6 % (1-9)
[2017-05-20] MEDS: MOBIC PO SCH (08:20)
[2017-05-20] MEDS: GLUCOPHAGE PO SCH (08:20)
[2017-05-20] MEDS: NORCO-10 PO PRN (12:33)
[2017-05-20] MEDS: 1/2 NS 1,000 ML IV SCH ×2 (12:39→20:50)
[2017-05-20] MEDS: FLAGYL PO SCH ×2 (14:33→20:50)
--- NOTE | 2017-05-20 14:51 | PROGRESS NOTE ---
DATE: 05/20/2017 SUBJECTIVE: Patient is still having diarrhea. She is more alert and seems more appropriate today. Stool cultures have been obtained, but no results are back yet. PHYSICAL EXAMINATION: Vital Signs: Blood pressure 140/69, respirations 19, pulse 65, temperature 97.8 degrees. HEENT: She is normocephalic. Extraocular movements intact. PERRLA. Throat clear. Lungs: Clear to auscultation and percussion without rhonchi, rales, wheezes. Heart: Regular rate rhythm without murmurs, gallops, or friction rubs. Abdomen: Soft with hyperactive bowel sounds. No organomegaly or tenderness. Neurological: Intact grossly at this time. She is less agitated and more appropriate. ASSESSMENT: 1. Acute gastroenteritis. 2. Altered mental status, improved. 3. Dehydration. 4. Osteoarthritis. 5. Hypokalemia, now resolved, and potassium is actually a little high at 5.3. PLAN: We will stop her metformin which could be a contributor. We will stop her potassium. We will start her on Flagyl 500 mg p.o. t.i.d. until we get cultures back. cc: MD Nicholas Stewart Jr, MD
[2017-05-20] MEDS: KLONOPIN PO SCH (20:50)
[2017-05-21] MEDS: DILAUDID IV PRN ×2 (00:40→03:21)
[2017-05-21] MEDS: SOLU-MEDROL IV SCH ×2 (01:09→11:50)
[2017-05-21] MEDS: ZOFRAN ODT PO SCH ×4 (05:19→16:47)
[2017-05-21] MEDS: PRILOSEC PO SCH ×2 (05:19→06:51)
[2017-05-21] MEDS: FLAGYL PO SCH ×3 (05:19→21:09)
[2017-05-21] MEDS: 1/2 NS 1,000 ML IV SCH ×4 (05:22→21:10)
[2017-05-21] MEDS: NORCO-10 PO PRN ×2 (05:24→21:09)
[2017-05-21 06:45] LABS: BASO% 0.2 % (0.0-0.8); EOS# 0.01 X1000 (0.0-0.7); EOS% 0.1 % (0.0-10.0); HEMATOCRIT 25.3 % (37.0-47.0); HEMOGLOBIN 8.3 g/dL (12.0-16.0); IMM GRAN# 0.65 X1000 (0.0-0.04); IMM GRAN% 6.9 % (0.0-0.5); LYMPH# 1.24 X1000 (1.2-3.4); LYMPH% 13.1 % (20.5-51.1); MANUAL DIFF NEEDED? YES; MCH 27.4 PG (27-31); MCHC 32.8 g/dL (33-37); MCV 83.5 FL (81-99); MONO# 1.29 X1000 (0.11-0.59); MONO% 13.6 % (1.7-9.3); MPV 9.7 FL (7.4-10.4); NEUT% 66.1 % (42.2-75.2); PLT 352 X1000 (130-400); RBC 3.03 XMIL (4.2-5.4)
[2017-05-21] MEDS: HUMULIN R SUBQ SCH ×4 (06:51→21:11)
[2017-05-21 06:57] LABS: CALCIUM 7.5 mg/dL (8.8-10.2); POTASSIUM 4.6 mmol/L (3.5-5.1)
[2017-05-21 07:07] LABS: BANDS 6 % (0-1); LYMPHS 10 % (21-51); MONO 12 % (1-9)
[2017-05-21] MEDS: MOBIC PO SCH (09:29)
--- NOTE | 2017-05-21 09:30 | PROGRESS NOTE ---
DATE: 05/21/2017 Ms. Starks is doing better. She is still anemic. Hemoglobin is 8.3. She does not move around much. Her white count is 9.46, hemoglobin is only 8.3. We will try to get B12 and folic acid levels. I will give her B12 injection today. Start physical therapy. Her stool culture was negative. -4 cc: Nicholas Sorensen MD
[2017-05-21 11:07] LABS: FERRITIN 136 ng/mL (13-150)
[2017-05-21] MEDS: DUONEB (A & A) INH PRN (16:07)
[2017-05-21] MEDS: KLONOPIN PO SCH (21:09)
[2017-05-21] MEDS: ZOFRAN IV PRN (21:10)
[2017-05-22] MEDS: 1/2 NS 1,000 ML IV SCH (01:33)
[2017-05-22] MEDS: FLAGYL PO SCH (06:37)
[2017-05-22] MEDS: PRILOSEC PO SCH (06:37)
[2017-05-22] MEDS: ZOFRAN ODT PO SCH (06:38)
[2017-05-22 07:02] LABS: BASO% 0.5 % (0.0-0.8); EOS# 0.03 X1000 (0.0-0.7); EOS% 0.4 % (0.0-10.0); HEMATOCRIT 25.4 % (37.0-47.0); HEMOGLOBIN 8.4 g/dL (12.0-16.0); IMM GRAN# 0.73 X1000 (0.0-0.04); IMM GRAN% 8.6 % (0.0-0.5); LYMPH# 1.62 X1000 (1.2-3.4); MANUAL DIFF NEEDED? YES; MCH 27.5 PG (27-31); MCHC 33.1 g/dL (33-37); MONO# 1.25 X1000 (0.11-0.59); MONO% 14.7 % (1.7-9.3); MPV 9.9 FL (7.4-10.4); NEUT% 56.8 % (42.2-75.2); PLT 344 X1000 (130-400); RBC 3.06 XMIL (4.2-5.4)
[2017-05-22 07:04] LABS: CALCIUM 7.8 mg/dL (8.8-10.2); POTASSIUM 4.2 mmol/L (3.5-5.1)
[2017-05-22 07:29] LABS: BANDS 2 % (0-1); LYMPHS 18 % (21-51); MONO 10 % (1-9)
[2017-05-22] MEDS ORDERED: CYANOCOBALAMIN IM ONE (08:35)
[2017-05-22 08:51] VITALS: BP 160/76
--- NOTE | 2017-05-22 08:53 | PROGRESS NOTE ---
DATE: 05/22/2017 SUBJECTIVE: Ms. Starks's repeat hemoglobin is 8.4, hematocrit is 25, white count is normal. Electrolytes are normal. BUN and creatinine have come back to normal. There is no active GI bleeding. Her B 12 level was somewhat low. We will give her injection B 12 today and will discharge her today. -8 cc: Nicholas Sorensen MD
[2017-05-22] MEDS: MOBIC PO SCH (09:32)
[2017-05-22] MEDS ORDERED: CALCIUM GLUCONATE 1 GM in NS 50 ML IV ONE (10:00)
--- NOTE | 2017-05-22 10:50 | DISCHARGE SUMMARY ---
ADMISSION DATE: 05/16/2017 DISCHARGE DATE: 05/22/2017 HISTORY OF PRESENT ILLNESS: Ms. Starks is an 82-year-old white female who was admitted with severe gastroenteritis and prerenal azotemia secondary from dehydration. IMAGING AND LABORATORY DATA: Laboratory data in the hospital: CBC showed hemoglobin was 12.3, it came down to 8.4 with hydration. INR was 1.02. Electrolytes were normal. However, initially when she came to the emergency room, BUN was 52, creatinine 3.7. Final creatinine was 1.2, BUN was 20. Electrolytes were again normal. Calcium was 7.9 and 7.5. Her urinalysis was negative. Lupus test was negative. X-ray of the wrist showed degenerative arthritis. Chest x-ray was normal. COURSE IN THE HOSPITAL: She was given IV fluids, and several bags were given to her in the ER and then up on the floor. It did clear the dehydration. She has severe arthritis. Left wrist was swollen. It showed degenerative changes. No injury. Lupus test was negative. General condition was stable. She is doing better. She was given physical therapy yesterday. She is anemic with low B12. We are giving B12 injection today. We are giving calcium gluconate injection also, and we will discharge her today. I will see her in the office in about 2 weeks. She is advised to take multivitamin with iron. cc: Nicholas Sorensen MD
== END 2017-05-22 12:00 | disposition home or self-care (01) ==
LOC: ED 09:58 → 3N 15:31
PROVIDERS: ADMIT Internal Medicine; ATTEND Internal Medicine

== ENCOUNTER 2019-08-20 10:27 | Inpatient (IN) ==
[2019-08-20] MEDS ORDERED: ZOFRAN IV ONE (10:57)
[2019-08-20] MEDS ORDERED: NS 1,000 ML IV ONE ×2 (10:57→17:56)
[2019-08-20] MEDS ORDERED: MORPHINE IV ONE (10:57)
[2019-08-20] MEDS ORDERED: TORADOL IV ONE (10:57)
[2019-08-20 11:46] LABS: INR 1.06; PROTIME 13.9 Seconds (11.0-16.0)
[2019-08-20 11:49] LABS: BASO# 0.02 X1000 (0.0-0.2); BASO% 0.3 % (0.0-0.8); EOS# 0.13 X1000 (0.0-0.7); HEMATOCRIT 34.1 % (37.0-47.0); HEMOGLOBIN 10.9 g/dL (12.0-16.0); IMM GRAN# 0.02 X1000 (0.0-0.04); IMM GRAN% 0.3 % (0.0-0.5); LYMPH# 1.53 X1000 (1.2-3.4); LYMPH% 23.9 % (20.5-51.1); MCH 27.9 PG (27-31); MCV 87.2 FL (81-99); MONO# 0.86 X1000 (0.11-0.59); MONO% 13.4 % (1.7-9.3); MPV 11.6 FL (7.4-10.4); NEUT# 3.85 X1000 (1.4-6.5); NEUT% 60.1 % (42.2-75.2); PLT 250 X1000 (130-400); RBC 3.91 XMIL (4.2-5.4); RDW 14.1 % (11.5-14.5); WBC 6.41 X1000 (4.8-10.8)
[2019-08-20 11:55] LABS: ALB/GLOB RATIO 1.6; ALBUMIN 3.8 g/dL (3.5-5.0); C REACTIVE PROT QUANT 14.74 mg/L (0.00-5.00); CALCIUM 8.9 mg/dL (8.8-10.2); CREATININE 1.4 mg/dL (0.5-0.9); POTASSIUM 4.5 mmol/L (3.5-5.1); TOTAL BILIRUBIN 0.18 mg/dL (0.20-1.00); TOTAL PROTEIN 6.2 g/dL (6.3-8.3)
--- NOTE | 2019-08-20 12:11 | Diag Imaging Result Doc PS360 ---
EXAM: CHEST-2 VIEWS 08/20/2019 HISTORY: short of breath TECHNIQUE: AP and lateral chest COMMENT: There are no previous studies. There is a granuloma in the right lower lobe. The heart size and pulmonary vascularity are within normal limits. There is some questionable opacity laterally in the left lower lobe. IMPRESSION: Left lower lobe bronchopneumonia. Advise follow-up until clear or stable. Electronically signed by Luis Mckeon 08/20/2019 12:08 PM
--- NOTE | 2019-08-20 12:21 | Diag Imaging Result Doc PS360 ---
EXAM: CT HEAD/C-SPINE W/O CONTRAST 08/20/2019 HISTORY: headache, left sided neck pain TECHNIQUE: This exam was performed using automated exposure control, adjustment of mA or kV according to patient size, and/or use of iterative reconstruction technique. COMMENT: There are no previous studies available for comparison. There are calcifications in both vertebral and internal carotid arteries. There is no evidence of mass effect, bleed, or abnormal extra-axial fluid collection. The calvarium is intact. There is no evidence of acute paranasal sinus disease. Cervical spine: There is degenerative disc disease with posterior osteophyte formation at C4-5 and particularly at the C5-6 and C6-7 levels. There is no evidence of fracture or subluxation. There is severe facet arthropathy at C2-3 and C3-4 bilaterally. The facets are aligned. There is no prevertebral soft tissue swelling. The visualized portions of the lung apices are within normal limits. IMPRESSION: 1. No evidence of acute disease intracranially. 2. Degenerative disc and facet disease as described. Electronically signed by Luis Mckeon 08/20/2019 12:19 PM
--- NOTE | 2019-08-20 13:12 | EKG Report ---
Test Performed on : 08/20/2019 12:58:39 PM Test Reason : left sided pain Blood Pressure : / mmHG Vent. Rate : 063 BPM Atrial Rate : 063 BPM P-R Int : 180 ms QRS Dur : 080 ms QT Int : 418 ms P-R-T Axes : 045 -11 045 degrees QTc Int : 427 ms Normal sinus rhythm. Inferior infarct , age undetermined Anterior infarct , age undetermined Abnormal ECG No previous ECGs available Unconfirmed Result
[2019-08-20] MEDS ORDERED: ZITHROMAX 500 MG/NS 500 MG/250 ML IVPB IV ONE (17:34)
[2019-08-20] MEDS ORDERED: ROCEPHIN 1 GM in NS 50 ML IV ONE (17:34)
--- NOTE | 2019-08-20 17:55 | PROVIDER DOCUMENTATION ---
This chart was entered by Andi Ascencio Scribe, acting as scribe for Hamlet Randle MD. HPI-General Adult - General Chief Complaint: Generalized Pain Stated Complaint: neck pain and headache x2 weeks Time Seen by Provider: 08/20/19 10:35 Source: patient, EMS Allergies/Adverse Reactions: Patient Allergies Allergy/AdvReac Type Severity Reaction Status Date / Time oxycodone AdvReac Severe Unknown Verified 08/20/19 13:31 oxycodone HCl * AdvReac SWELLING Verified 08/20/19 13:31 [From Percocet] Home Medications: Home Medication List Medication Instructions Recorded Confirmed Last Taken Type Meloxicam [Mobic] 15 mg PO DAILY tablet 05/22/17 07/09/18 Unknown Rx Acetaminophen/Diphenhydramine 1 ea PO Q6HR PRN #14 tab 07/09/18 Unknown Rx [Percogesic 325-12.5 mg Tablet] Amoxicillin/Pot Clavulanate 875 mg PO Q12HR #14 tab 07/09/18 Unknown Rx [Augmentin] Metformin [Glucophage] 500 mg PO BID 07/09/18 07/09/18 Unknown History Omeprazole [Prilosec] 20 mg PO DAILY 07/09/18 07/09/18 Unknown History Cyclobenzaprine [Flexeril] 10 mg PO HS 08/20/19 08/20/19 Unknown History Meloxicam 15 mg PO DAILY 08/20/19 08/20/19 Unknown History Metformin HCl [Metformin HCl ER] 500 mg PO BID 08/20/19 08/20/19 Unknown History Omeprazole 20 mg PO DAILY 08/20/19 08/20/19 Unknown History - History of Present Illness -Gen Adult Nature of Presenting Problems: 84 y/o F presents to the ED via EMS due to head/neck pain and generalized body aches. According to the EMS patient was seen last week by pcp for the head/neck pain and was given some type of muscle relaxer. Patient reports that last night the pain became worse and now her entire body aches. Patient reports taking some OTC Advil without relief. Patient denies any obvious injury. Location of Pain/Injury: reports: head, neck, generalized Quality of Pain: reports: aching Severity: reports: moderate Onset/Duration: reports: other (few weeks) Timing: reports: getting worse Context/Activities at Onset: reports: none Modifying Factors: worse with: movement Associated Symptoms: reports: denies symptoms Similar Symptoms Previously?: Yes Recently seen or treated by another doctor?: Yes Review of Systems - Adult - REVIEW OF SYSTEMS - ADULT Constitutional: denies: chills, fever Eyes: reports: no symptoms reported Ears, Nose, Mouth & Throat: reports: no symptoms reported Cardiovascular: denies: chest pain, palpitations Respiratory: denies: shortness of breath, wheezing Gastrointestinal: denies: diarrhea, nausea, vomiting Genitourinary: reports: no symptoms reported Musculoskeletal: reports: neck pain Integumentary: denies: rash Neurological: reports: headache/migraines. denies: dizziness/vertigo Psychiatric: reports: no symptoms reported Endocrine: reports: no symptoms reported Hematologic/Lymphatic: reports: no symptoms reported Allergic/Immunologic: reports: no symptoms reported All Other Systems: Reviewed and Negative Past History - Adult - PAST MEDICAL HISTORY-ADULT Review of Records: reports: Nursing Assessment Review, Medications Reviewed Major Childhood Illnesses: reports: denies history Cardiovascular: reports: hyperlipidemia Respiratory: reports: COPD Gastrointestinal: reports: denies history Obstetrical/Gynecological: reports: denies history Genitourinary: reports: denies history Musculoskeletal: reports: denies history Neurological: reports: denies history Endocrine/Immune: reports: Diabetes Other Conditions: reports: other cancer - PRIOR SURGERIES/PROCEDURES Surgical/Procedure History: reports: BTL, tonsillectomy - IMMUNIZATION STATUS Childhood Immunizations: See Nurse Assessment Flu Vaccine: See Nurse Assessment - SOCIAL HISTORY Smoking: denies Substance Use: denies Physical Exam-General - PHYSICAL EXAM-ADULT Initial Vital Signs Reviewed: Yes - CONSTITUTIONAL General Appearance: alert, no apparent distress - NECK Neck: other (left posterior cervical tenderness with muscle spasm). negative: Brudzinski's sign - RESPIRATORY Respiratory: lungs clear, normal breath sounds, no respiratory distress, no accessory muscle use - CARDIOVASCULAR Cardiovascular: normal peripheral pulses, bradycardia - GASTROINTESTINAL (ABDOMEN) Abdominal Exam: non tender, soft - SKIN Integumentary: normal color, warm/dry - PSYCHIATRIC Psych/Mental Status: normal mood/affect, oriented x 3 Progress - PLAN OF CARE/RESULTS Progress/Plan/Lab Results: Vital Signs - 8 hr 08/20/19 10:55 Temperature 97.9 F Pulse Rate 63 Respiratory Rate 24 Blood Pressure 186/83 O2 Sat by Pulse Oximetry 96 Orders Category Date Time Status Nursing- Obtain EKG once Care 08/20/19 10:54 Active Saline Loc NOW Care 08/20/19 10:54 Active CHEST-2 VIEWS [RAD] Stat Exams 08/20/19 10:[address] HEAD/C-SPINE W/O CONTRAST [CT] Stat Exams 08/20/19 10:53 Ordered BLOOD CULTURE [BLDCUL] Stat Lab 08/20/19 10:55 Uncollected C REACTIVE PROT QUANT [CHEM] Stat Lab 08/20/19 10:55 Uncollected CBC WITH ELECTRONIC DIFF [HEME] Stat Lab 08/20/19 10:55 Uncollected CK PROFILE [SP CHEM] Stat Lab 08/20/19 10:55 Uncollected COMPREHENSIVE METABOLIC PANEL [CHEM] Stat Lab 08/20/19 10:55 Uncollected INFLUENZA SCREEN A/B Stat Lab 08/20/19 10:55 Uncollected LACTATE, PLASMA [CHEM] Stat Lab 08/20/19 10:55 Uncollected PRO B-NATRIURETIC PEPTIDE Stat Lab 08/20/19 10:55 Uncollected PROTIME WITH INR [COAG] Stat Lab 08/20/19 10:55 Uncollected TROPONIN T Stat Lab 08/20/19 10:56 Uncollected URINALYSIS W/POSS RFLX CULT [URINALYSIS] Stat Lab 08/20/19 10:56 Uncollected 0.9% Sodium Chloride Inj [Ns] 1,000 ml Med 08/20/19 10:57 Active IV 999 mls/hr Ketorolac [Toradol] Med 08/20/19 10:57 Discontinued 15 mg IV NOW ONE Morphine Med 08/20/19 10:57 Discontinued 2 mg IV NOW ONE Ondansetron [Zofran] Med 08/20/19 10:57 Discontinued 4 mg IV NOW ONE EKG [EKG] Stat Ther 08/20/19 10:54 Ordered US [Venous U/S Left Arm] Stat Ther 08/20/19 10:55 Ordered Result Diagrams: 08/20/19 11:15 08/20/19 11:15 - REASSESSMENT Reassessment #1 Time Reassessed: 17:36 Status: improving (Given IVF, rocephin/zithromax ordered for CAP) - EKG 1 Time of EKG reading by physician:: 13:12 EKG Read and Signed by:: Hamlet Randle EKG Interpretation (*Must complete 3 of following elements*): Abnormal Rate: 63 Rhythm: NSR ST Wave: non-specific ST changes - XRAY 1 XRAY Study: Chest Impression: See EMR Report (EXAM: CHEST-2 VIEWS 08/20/2019 HISTORY: short of breath TECHNIQUE: AP and lateral chest COMMENT: There are no previous studies. There is a granuloma in the right lower lobe. The heart size and pulmonary vascularity are within normal limits. There is some questionable opacity laterally in the left lower lobe. IMPRESSION: Left lower lobe bronchopneumonia. Advise follow-up until clear or stable. Electronically s igned by Luis Mckeon 08/20/2019 12:08 PM 08/20/19 1208 Interpreting Physician: Luis Mckeon MD Dictated Date/Time: 08/20/19 1207 cc: Hamlet Randle MD; Nicholas Sorensen MD) - CT/MRI 1 CT Study: Cervical Spine, Head Impression: See EMR Report (EXAM: CT HEAD/C-SPINE W/O CONTRAST 08/20/2019 HISTORY: headache, left sided neck pain TECHNIQUE: This exam was performed using automated exposure control, adjustment of mA or kV according to patient size, and/or use of iterative reconstruction technique. COMMENT: There are no previous studies available for comparison. There are calcifications in both leif tebral and internal carotid arteries. There is no evidence of mass effect, bleed, or abnormal extra-axial fluid collection. The calvarium is intact. There is no evidence of acute paranasal sinus disease. Cervical spine: There is degenerative disc disease with posterior osteophyte formation at C4-5 and particularly at the C5-6 and C6-7 levels. There is no evidence of fracture or subluxation. There is severe facet arthropathy at C2-3 and C3-4 bilaterally. The facets are aligned. There is no prevertebral soft tissue swelling. The visualized portions of the lung apices are within normal limits. IMPRESSION: 1. No evidence of acute disease intracranially. 2. Degenerative disc and facet disease as described. Electronically signed by Luis Mckeon 08/20/2019 12:19 PM 08/20/19 1219 Interpreting Physician: Luis Mckeon MD Dictated Date/Time: 08/20/19 1217 cc: Hamlet Randle MD; Nicholas Sorensen MD) - ULTRASOUND (By Radiology) 1 US Study: other (left arm venous ultrasound) Impression: Normal - CONSULTS/PCP/HOSPITALIST Notification #1 *Consult/PCP/Hospitalist*: Koko paged at [phone] Time Discussed: 17:55 Consult Disposition: Will see in ED Departure - Departure Date of Disposition Decision: 08/20/19 Time of Disposition Decision: 17:37 DIAGNOSIS: Febrile illness, acute Left lower lobe pneumonia Qualifiers: Pneumonia type: due to unspecified organism Qualified Code(s): J18.1 - Lobar pneumonia, unspecified organism Disposition: ADMITTED INPATIENT 09 Certified Medical Emergency: Emergent Condition: Fair Referrals and Follow-Ups: Nicholas Sorensen MD [Primary Care Provider] - - Critical Care Note This patient required my direct & personal management of CC.: No Attestation - Physician/ QUINN Attestation Patient care was provided by Advanced Practice Provider:: No The physician spent face to face time with patient:: Yes Advanced Practice Provider documentation review:: Supervising physician onsite and consulted in the evaluation and care of this patient. The physician did have a face to face encounter with the patient. This chart was documented by the indicated scribe, (Andi Ascencio Scribe) and accurately reflects the services I performed and decisions made by me, Hamlet Randle MD, as attested by the provider's signature.
[2019-08-20] MEDS ORDERED: ZOFRAN PO PRN (17:56)
[2019-08-20] MEDS ORDERED: D50W SYRINGE IV ONE (17:58)
[2019-08-20 18:45] LABS: URINE SOURCE CLEAN CATCH
[2019-08-20 18:54] LABS: BILIRUBIN URINE NEGATIVE (NEGATIVE); BLOOD URINE NEGATIVE (NEGATIVE); COLOR YELLOW; GLUCOSE URINE NEGATIVE (NEGATIVE); KETONE URINE NEGATIVE (NEGATIVE); LEUKOCYTES URINE NEGATIVE (NEGATIVE); NITRITE URINE NEGATIVE (NEGATIVE); PROTEIN URINE NEGATIVE (NEGATIVE); SP GRAVITY URINE 1.013; TURBIDITY URINE CLEAR (CLEAR); UR EPITHELIAL CELLS <10 /HPF (<10); URINE BACTERIA NEGATIVE /HPF; URINE RBC <10 /HPF (<10); URINE WBC <10 /HPF (<10); UROBILINOGEN URINE NORMAL (NORMAL)
[2019-08-20] MEDS ORDERED: SOLU-MEDROL IV ONE (19:40)
[2019-08-20] MEDS: DUONEB (A & A) INH SCH ×2 (19:49→23:03)
[2019-08-20] MEDS: ROCEPHIN 1 GM in NS 50 ML IV SCH (21:22)
[2019-08-20] MEDS: HUMULIN R SUBQ SCH (21:29)
[2019-08-20] MEDS: GLUCOPHAGE XR PO SCH (21:30)
[2019-08-20] MEDS: XANAX PO SCH (21:46)
[2019-08-20] MEDS: ZITHROMAX 500 MG/NS 500 MG/250 ML IVPB IV SCH (21:51)
[2019-08-20] MEDS: TYLENOL PO PRN (21:58)
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
[2019-08-21] MEDS: DUONEB (A & A) INH SCH ×6 (03:39→23:17)
[2019-08-21] MEDS: XANAX PO SCH ×3 (05:20→20:55)
[2019-08-21 05:23] LABS: BASO# 0.01 X1000 (0.0-0.2); BASO% 0.1 % (0.0-0.8); HEMATOCRIT 32.9 % (37.0-47.0); HEMOGLOBIN 10.4 g/dL (12.0-16.0); IMM GRAN# 0.06 X1000 (0.0-0.04); IMM GRAN% 0.9 % (0.0-0.5); LYMPH# 0.63 X1000 (1.2-3.4); LYMPH% 9.1 % (20.5-51.1); MCH 27.7 PG (27-31); MCHC 31.6 g/dL (33-37); MCV 87.7 FL (81-99); MONO# 0.15 X1000 (0.11-0.59); MONO% 2.2 % (1.7-9.3); MPV 11.5 FL (7.4-10.4); NEUT# 6.06 X1000 (1.4-6.5); NEUT% 87.7 % (42.2-75.2); PLT 219 X1000 (130-400); RBC 3.75 XMIL (4.2-5.4); RDW 14.3 % (11.5-14.5); WBC 6.91 X1000 (4.8-10.8)
[2019-08-21 05:41] LABS: LYMPHS 14 % (21-51); MONO 2 % (1-9); SEGS 84 % (42-75)
[2019-08-21 05:49] LABS: CALCIUM 8.4 mg/dL (8.8-10.2); CREATININE 1.4 mg/dL (0.5-0.9); POTASSIUM 4.3 mmol/L (3.5-5.1)
[2019-08-21] MEDS: HUMULIN R SUBQ SCH ×4 (06:19→20:56)
--- NOTE | 2019-08-21 07:57 | Diag Imaging Result Doc PS360 ---
EXAM: CHEST-2 VIEWS INDICATION: pneumonia TECHNIQUE: 2 views COMPARISON: 08/20/2019 FINDINGS: Questionable vague opacity at the left lower lobe is approximately stable and may represent mild atelectasis. There is no discrete pleural fluid collection or pneumothorax. The cardiomediastinal silhouette and central vasculature are grossly unremarkable. IMPRESSION: Essentially stable chest. Electronically signed by Alexis Rudolph 08/21/2019 7:55 AM
[2019-08-21] MEDS: ROCEPHIN 1 GM in NS 50 ML IV SCH ×2 (09:04→20:21)
[2019-08-21] MEDS: GLUCOPHAGE XR PO SCH ×2 (09:04→20:55)
[2019-08-21] MEDS: PRILOSEC PO SCH (09:04)
--- NOTE | 2019-08-21 15:51 | PROGRESS NOTE ---
DATE: 08/21/2019 Ms. Jarvis was admitted last night with possible pneumonia, left lower lobe. She had severe neck pain. She does have severe arthritis in the cervical spine, degenerative disk disease, and facet disease. I think that is responsible for pain. Her lungs revealed some congestion, especially on the left side. She is on IV Rocephin as well as azithromycin, which we will continue. The chest x-ray does show left lower lobe bronchopneumonia. -9 cc: Nicholas Sorensen MD
--- NOTE | 2019-08-21 20:07 | Extremity Venous Study ---
PROCEDURE NAME: Venous U/S Left Arm - 08/20/2019 STUDY: Left upper extremity venous study. REQUESTING PHYSICIAN: Hamlet Randle. SPECIAL ASSEMBLIES SUPERVISOR: Katie Gomez RVT. INDICATIONS: 1. Left arm pain with neck and shoulder. 2. History of DVT in the leg. EQUIPMENT: E[employer]ual Vivid E9 Ultrasound System with a 9L-D transducer. FINDINGS: Imaging of the left upper extremity venous system with comparison shots to the right subclavian vein were obtained in both sagittal and transverse planes. Doppler was used to evaluate veins for spontaneity, phasicity, respiratory excursion, and digital augmentation. RESULTS: Normal venous compression. Normal venous flow. No obvious superficial or deep venous thrombosis noted. INTERPRETATION: Essentially normal left upper extremity venous study. cc: MD Nicholas Chan MD
[2019-08-21] MEDS: ZITHROMAX 500 MG/NS 500 MG/250 ML IVPB IV SCH (20:56)
[2019-08-22] MEDS: DUONEB (A & A) INH SCH ×6 (03:09→23:45)
[2019-08-22 05:16] LABS: BASO# 0.02 X1000 (0.0-0.2); BASO% 0.2 % (0.0-0.8); EOS# 0.01 X1000 (0.0-0.7); EOS% 0.1 % (0.0-10.0); HEMATOCRIT 30.2 % (37.0-47.0); HEMOGLOBIN 9.5 g/dL (12.0-16.0); IMM GRAN# 0.11 X1000 (0.0-0.04); IMM GRAN% 0.9 % (0.0-0.5); LYMPH# 1.56 X1000 (1.2-3.4); LYMPH% 13.1 % (20.5-51.1); MCH 27.6 PG (27-31); MCHC 31.5 g/dL (33-37); MCV 87.8 FL (81-99); MONO# 0.88 X1000 (0.11-0.59); MONO% 7.4 % (1.7-9.3); MPV 11.2 FL (7.4-10.4); NEUT% 78.3 % (42.2-75.2); PLT 245 X1000 (130-400); RBC 3.44 XMIL (4.2-5.4); RDW 14.4 % (11.5-14.5); WBC 11.88 X1000 (4.8-10.8)
[2019-08-22 05:56] LABS: CALCIUM 9.1 mg/dL (8.8-10.2); CREATININE 1.4 mg/dL (0.5-0.9); POTASSIUM 4.3 mmol/L (3.5-5.1)
[2019-08-22] MEDS: XANAX PO SCH ×3 (06:12→20:01)
[2019-08-22] MEDS: HUMULIN R SUBQ SCH ×4 (06:12→20:01)
[2019-08-22] MEDS: ROCEPHIN 1 GM in NS 50 ML IV SCH ×2 (09:21→20:01)
[2019-08-22] MEDS: PRILOSEC PO SCH (09:22)
[2019-08-22] MEDS: GLUCOPHAGE XR PO SCH ×2 (09:22→20:01)
--- NOTE | 2019-08-22 16:19 | PROGRESS NOTE ---
DATE: 08/22/2019 SUBJECTIVE: Ms. Jarvis is feeling better. She is still having a lot of neck and back pain. She has severe degenerative disk disease in the spine. Her lungs reveal occasional rales on the left base. She has left lower lobe pneumonia. CBC shows white count of 11.88, hemoglobin is 9.5, hematocrit 30.2. We will continue with the current management with Rocephin and azithromycin. -7 cc: Nicholas Sorensen MD
[2019-08-22] MEDS: TYLENOL PO PRN (16:34)
[2019-08-22] MEDS: ULTRACET 37.5MG/325MG PO PRN (19:18)
[2019-08-22] MEDS: ZITHROMAX 500 MG/NS 500 MG/250 ML IVPB IV SCH (20:02)
[2019-08-23] MEDS: DUONEB (A & A) INH SCH ×6 (03:24→23:01)
[2019-08-23] MEDS: XANAX PO SCH ×3 (05:27→21:11)
[2019-08-23] MEDS: HUMULIN R SUBQ SCH ×4 (06:11→21:49)
[2019-08-23 06:26] LABS: BASO# 0.01 X1000 (0.0-0.2); BASO% 0.1 % (0.0-0.8); EOS# 0.13 X1000 (0.0-0.7); EOS% 1.7 % (0.0-10.0); HEMATOCRIT 29.9 % (37.0-47.0); HEMOGLOBIN 9.3 g/dL (12.0-16.0); IMM GRAN# 0.11 X1000 (0.0-0.04); IMM GRAN% 1.4 % (0.0-0.5); LYMPH# 1.63 X1000 (1.2-3.4); LYMPH% 21.1 % (20.5-51.1); MCH 27.4 PG (27-31); MCHC 31.1 g/dL (33-37); MCV 88.2 FL (81-99); MONO# 0.79 X1000 (0.11-0.59); MONO% 10.2 % (1.7-9.3); MPV 11.1 FL (7.4-10.4); NEUT# 5.05 X1000 (1.4-6.5); NEUT% 65.5 % (42.2-75.2); PLT 225 X1000 (130-400); RBC 3.39 XMIL (4.2-5.4); RDW 14.8 % (11.5-14.5); WBC 7.72 X1000 (4.8-10.8)
[2019-08-23 06:58] LABS: CALCIUM 8.2 mg/dL (8.8-10.2); CREATININE 1.4 mg/dL (0.5-0.9); POTASSIUM 4.5 mmol/L (3.5-5.1)
--- NOTE | 2019-08-23 08:08 | Diag Imaging Result Doc PS360 ---
EXAM: CHEST-2 VIEWS HISTORY: pneumonia follow up TECHNIQUE: Chest two views COMPARISON: 08/21/2019 FINDINGS: The lungs are hyperexpanded. The heart is not enlarged. The vessels are not distended. There are no infiltrates. No pleural effusions. IMPRESSION: No pneumonia Electronically signed by Miles Hickman 08/23/2019 8:05 AM
[2019-08-23] MEDS: ROCEPHIN 1 GM in NS 50 ML IV SCH ×2 (08:42→21:11)
[2019-08-23] MEDS: GLUCOPHAGE XR PO SCH ×2 (08:43→21:12)
[2019-08-23] MEDS: PRILOSEC PO SCH (08:43)
[2019-08-23] MEDS: ULTRACET 37.5MG/325MG PO PRN ×2 (08:51→21:22)
--- NOTE | 2019-08-23 17:11 | PROGRESS NOTE ---
DATE: 08/23/2019 SUBJECTIVE: An 84-year-old white female of Dr. Sorensen admitted to the hospital on 08/20/2019, basically for left-sided neck pain going on for 2 weeks and then, in the meantime, patient was found to have bronchopneumonia on the left side and admitted for pneumonia on the left side. The patient is not offering any complaints. REVIEW OF SYSTEMS: None reported. PAST MEDICAL HISTORY: Reviewed. PAST SURGICAL HISTORY: Reviewed. MEDICINES: Reviewed. ALLERGIES: Oxycodone. OBJECTIVE: General: On examination, patient is not in respiratory distress. Vital Signs: Temperature is 97.9 degrees, pulse 76, blood pressure is 153/76, 96% on room air. HEENT exam: Atraumatic, normocephalic. Pupils equal, react to light. No anemia. No cyanosis. No jaundice. Neck: Neck is supple. No lymphadenopathy. No goiter. Chest: No signs of pneumonitis. Heart: Sounds are regular. Skin: The patient has some actinic lesions noted on the forehead and the left arm. Abdomen: Belly is soft, nontender. Neurologic: No obvious neurological deficits. INVESTIGATIONS: White cell count 7.7, hematocrit 29.9, platelets 225. Sodium 141, potassium 4.8, chloride 111. BUN 25, creatinine 1.4, glucose 123. Chest x-ray: No signs of pneumonia. Influenza screen was negative. Blood cultures were negative. ASSESSMENT AND PLAN: 1. Left-sided neck pain is better. 2. Azotemia, stable. 3. Creatinine 1.4, currently off intravenous fluids. 4. Bronchopneumonia. Intravenous ceftriaxone and Zithromax. 5. Type 2 diabetes on metformin. Continue present treatment. We will check the labs in the morning. LEVEL OF DOCUMENTATION: 35 minutes. cc: MD Nicholas Dee MD
[2019-08-23] MEDS: ZITHROMAX 500 MG/NS 500 MG/250 ML IVPB IV SCH (21:12)
[2019-08-24] MEDS: DUONEB (A & A) INH SCH ×6 (03:10→23:03)
[2019-08-24 05:13] LABS: BASO# 0.02 X1000 (0.0-0.2); BASO% 0.3 % (0.0-0.8); EOS# 0.15 X1000 (0.0-0.7); EOS% 2.3 % (0.0-10.0); HEMATOCRIT 31.5 % (37.0-47.0); HEMOGLOBIN 9.9 g/dL (12.0-16.0); IMM GRAN# 0.08 X1000 (0.0-0.04); IMM GRAN% 1.2 % (0.0-0.5); LYMPH# 1.62 X1000 (1.2-3.4); LYMPH% 25.3 % (20.5-51.1); MCH 27.5 PG (27-31); MCHC 31.4 g/dL (33-37); MCV 87.5 FL (81-99); MONO# 0.65 X1000 (0.11-0.59); MONO% 10.1 % (1.7-9.3); MPV 10.9 FL (7.4-10.4); NEUT# 3.89 X1000 (1.4-6.5); NEUT% 60.8 % (42.2-75.2); PLT 253 X1000 (130-400); RDW 14.4 % (11.5-14.5); WBC 6.41 X1000 (4.8-10.8)
[2019-08-24 05:42] LABS: CREATININE 1.3 mg/dL (0.5-0.9); POTASSIUM 4.6 mmol/L (3.5-5.1)
[2019-08-24] MEDS: XANAX PO SCH ×3 (06:39→21:16)
[2019-08-24] MEDS: HUMULIN R SUBQ SCH ×4 (06:40→21:13)
[2019-08-24] MEDS: GLUCOPHAGE XR PO SCH ×2 (08:48→21:11)
[2019-08-24] MEDS: ROCEPHIN 1 GM in NS 50 ML IV SCH ×2 (08:48→20:00)
[2019-08-24] MEDS: PRILOSEC PO SCH (08:48)
[2019-08-24 13:09] LABS: CALCIUM 9.8 mg/dL (8.8-10.2)
--- NOTE | 2019-08-24 15:24 | PROGRESS NOTE ---
DATE: 08/24/2019 SUBJECTIVE: The patient has complains of some headaches, coughing. REVIEW OF SYSTEMS: Rest of the review of systems is normal. PHYSICAL EXAMINATION: Temperature is 98.3, pulse is 82, blood pressure is 144/81, 99% on room air. HEENT Examination: Had an actinic lesion on the forehead. Titubation noted. No signs of pneumonitis. Heart sounds are distant. No neurological deficits. The patient has significant primary osteoarthritic changes noted in both hands. Exhibiting essential tremor. INVESTIGATIONS: CBC: White cell count 6.4, hematocrit 31.5, platelets 253,000. Sodium 140, potassium 4.6, chloride 108, BUN 22, creatinine 1.3, glucose 114. Influenza and blood cultures were negative. ASSESSMENT AND PLAN: 1. Bronchopneumonia, improving. Continue on ceftriaxone, Zithromax. 2. Type 2 diabetes, on metformin. 3. Essential tremor, stable. 4. Mild azotemia, stable. Creatinine 1.3. 5. Chronic headaches and neck pain due to spondylosis. Continue on tramadol and Dr. Sorensen will follow up. LEVEL OF DOCUMENTATION: 35 minutes. cc: MD Nicholas Dee MD
[2019-08-24] MEDS: ZITHROMAX 500 MG/NS 500 MG/250 ML IVPB IV SCH (21:13)
[2019-08-25] MEDS: DUONEB (A & A) INH SCH ×2 (02:55→08:08)
[2019-08-25] MEDS: XANAX PO SCH (04:20)
[2019-08-25] MEDS: HUMULIN R SUBQ SCH ×2 (06:05→12:04)
[2019-08-25 08:00] VITALS: BP 152/89
[2019-08-25] MEDS: ROCEPHIN 1 GM in NS 50 ML IV SCH (09:08)
[2019-08-25] MEDS: PRILOSEC PO SCH (09:08)
[2019-08-25] MEDS: GLUCOPHAGE XR PO SCH (09:08)
--- NOTE | 2019-08-25 09:43 | PROGRESS NOTE ---
DATE: 08/25/2019 SUBJECTIVE: She was admitted for pneumonia. The pneumonia has cleared up. We are going to continue with the current management on her. Will call for a prescription for Keflex for 7 days at [facility]. She is feeling better. Vital signs are stable. -7 cc: Nicholas Sorensen MD
--- NOTE | 2019-08-27 03:56 | DISCHARGE SUMMARY ---
ADMISSION DATE: 08/20/2019 DISCHARGE DATE: 08/25/2019 HISTORY: Ms. Jarvis who is a 84-year-old white female came to the emergency room with swelling in the left upper extremity. She has less cough and expectoration, low-grade fever, some shortness of breath. She has a known case of COPD. In the hospital she had left arm pain. The study was negative for venous thrombosis. She also had CT of the head and cervical spine, which showed no evidence of acute disease in the disk and facet disease was noted in the cervical spine at several levels. She also had an EKG which revealed normal sinus rhythm, inferior infarct, anterior infarct, age undetermined. LABORATORY DATA: In the hospital she had a chest x-ray in the ER, which revealed left lower lobe pneumonia. Her lab data has revealed mild leukocytosis, white count 11.88, hemoglobin 9.5. Coagulation studies were negative. INR was 1.06. Blood sugar was in the 9 teens. Urinalysis was negative point. COURSE IN THE HOSPITAL: She was treated with IV Rocephin as well as IV azithromycin as it was community-acquired pneumonia. She continued to do well. Repeat chest x-ray was negative for pneumonia. She was feeling better. 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 FOLLOW-UP: She will be seen in the office in about 15 to 20 days. She has Augmentin at home which she will take. cc: Nicholas Sorensen MD
== END 2019-08-25 13:17 | disposition home or self-care (01) | DRG 194 ==
LOC: SUPCPDRO → EDBD → MERGE 10:27 → ED 10:27 → 1N 18:37
PROVIDERS: ADMIT Internal Medicine; ATTEND Internal Medicine